=== PATIENT | female | born 1965 | race American Indian/Alaskan Native ===

== ENCOUNTER 2018-12-28 09:17 | Day surgery (SDC) | payer MEDICARE ==
[~2018-12-28 09:17] MED LIST: ceFAZolin/Water 2 GM/20 ML 2 GM/20 ML SYRINGE IV NR
--- NOTE | 2018-12-28 12:54 | Anesthesia Consultation ---
Anesthesia Consult and Med Hx Date of service: 12/28/18 - Airway Anesthetic Teeth Evaluation: Good ROM Head & Neck: Adequate Mental/Hyoid Distance: Adequate Mallampati Class: Class II Intubation Access Assessment: Good - Pulmonary Exam CTA: Yes - Cardiac Exam Cardiac Exam: RRR - Pre-Operative Health Status ASA Pre-Surgery Classification: ASA3 Proposed Anesthetic Plan: General - Cardiovascular System Hx Hypertension: Yes (x 17 yrs) - Central Nervous System Hx Psychiatric Problems: No - Endocrine Hx Renal Disease: Yes Hx End Stage Renal Disease: Yes - Other Systems Hx Cancer: No
--- NOTE | 2018-12-28 12:54 | Anesthesia Day of Surgery ---
Anesthesia Day of Surgery - Day of Surgery Patient Examined: Yes Patient H&P Reviewed: Yes Patient is NPO: Yes
[2018-12-28] MEDS ORDERED: ONDANSETRON 4 MG/2 ML INJ IV PRN (12:55)
[2018-12-28] MEDS ORDERED: HYDROmorphone 1 MG/1 ML INJ IV PRN (12:55)
[2018-12-28] MEDS ORDERED: MIDAZOLAM 2 MG/2 ML INJ IV NR (13:00)
[2018-12-28] MEDS ORDERED: LACTATED RINGERS 1,000 ML IV SCH (13:00)
[2018-12-28 14:36] LABS: Basophils # (Auto) 0.1 K/mm3 (0.0-0.1); Basophils % (Auto) 1.7 % (0.0-1.8); Eosinophils # (Auto) 0.1 K/mm3 (0.0-0.4); Eosinophils % (Auto) 2.9 % (0.0-4.3); Hemoglobin 13.1 gm/dl (10.1-14.3); Lymphocytes # (Auto) 1.6 K/mm3 (1.2-5.4); Lymphocytes % (Auto) 40.4 % (13.4-35.0); Mean Corpuscular HGB Conc 33 % (30-34); Mean Corpuscular Volume 93 fl (79-97); Monocytes # (Auto) 0.4 K/mm3 (0.0-0.8); Monocytes % (Auto) 9.1 % (0.0-7.3); Platelet Count 150 K/mm3 (140-440); Red Blood Count 4.33 M/mm3 (3.65-5.03)
[2018-12-28 14:52] LABS: Calcium 8.9 mg/dL (8.4-10.2)
[2018-12-28] MEDS ORDERED: SODIUM CHLORIDE 0.9% 1000 ML 1,000 ML IV SCH (15:10)
[2018-12-28] MEDS ORDERED: SODIUM CHLORIDE 0.9% 1000 ML 1,000 ML ONE (15:16)
[2018-12-28] MEDS ORDERED: LIDOCAINE (1%) 10 MG/1 ML VIAL 20 ML MDV ONE (18:29)
[2018-12-28] MEDS ORDERED: SODIUM CHLORIDE P/F VIAL 10 ML 10 ML ONE (18:29)
[2018-12-28] MEDS ORDERED: HEPARIN 10,000 UNITS/10 ML VIAL ONE (18:29)
[2018-12-28] MEDS ORDERED: BUPIVACAINE/PF (0.5%) 5 MG/1 ML 30 ML VIAL INFILTRATI ONE ×2 (18:29→21:11)
[2018-12-28] MEDS ORDERED: NITROGLYCERIN SYRINGE 0 ML ONE (18:30)
[2018-12-28] MEDS ORDERED: SODIUM CHLORIDE 0.9% 500 ML 500 ML ONE (18:30)
[2018-12-28] MEDS ORDERED: rifAMPin 600 MG VIAL ONE (18:30)
[2018-12-28] MEDS ORDERED: SODIUM CHLORIDE 0.9% 100 ML ONE (19:29)
[2018-12-28] MEDS ORDERED: SODIUM CHLORIDE 0.9% 50 ML ONE (19:29)
[2018-12-28] MEDS ORDERED: HYDROmorphone 1 MG/1 ML INJ ONE (20:34)
[2018-12-28] MEDS ORDERED: LIDOCAINE MPF (2%) 20 MG/1 ML VIAL 5 ML ONE (20:34)
[2018-12-28] MEDS ORDERED: PROPOFOL 200 MG/20 ML VIAL IV ONE (20:34)
[2018-12-28] MEDS ORDERED: SODIUM CHLORIDE 0.9% IRR 1,000 ML BOTTLE IR ONE (21:11)
[2018-12-28] MEDS ORDERED: HEPARIN 2,000 UNIT in SODIUM CHLORIDE 0.9% 500 ML 500 ML IR ONE (21:11)
[2018-12-28] MEDS ORDERED: PHENYLEPHRINE/NS 1,000 MCG/10 ML SYRINGE (OR USE) IV ONE (21:54)
[2018-12-28] MEDS ORDERED: RIFAMPIN IR ONE (22:15)
[2018-12-28] MEDS ORDERED: SODIUM CHLORIDE 0.9% IR ONE (22:15)
[2018-12-28] MEDS ORDERED: HEPARIN 10,000 UNITS/10 ML VIAL IV ONE (22:18)
[2018-12-28] MEDS ORDERED: ONDANSETRON 4 MG/2 ML INJ ONE (23:11)
--- NOTE | 2018-12-28 23:20 | Operative Report ---
Operative Report Operative Report: Date of procedure: 12/28/2018 Pre-operative diagnosis: [] Post-operative diagnosis: [] Procedure(s): 1. Creation of Left Brachial Artery to Axillary Vein AV Graft with 8 mm Bovine Graft Surgeon: Simon Zafar MD Life Skills Coordinator: None Anesthesia: General Endotracheal Anesthesia EBL: Minimal Counts: Correct Complications: None Condition: Stable Findings: Successful Creation of Left Arm AV Graft Specimen: None Indication: [] Description of Procedure: The patient was brought to the operating room and laid in supine position after general endotracheal anesthesia was achieved the left arm was prepped and draped in normal sterile fashion. A longitudinal incision was made on the medial aspect of the arm just proximal to the antecubital crease and carried down to the brachial artery using sharp dissection. The brachial artery was dissected out circumferentially both proximally and distally and controlled with vessel loops. A second incision was created in longitudinal fashion on the medial aspect of the arm just distal to the axillary crease and carried down to the axillary vein using sharp dissection. Axillary vein was dissected out circumferentially and controlled with a vessel loop. I then used a Catrachita-Wick tunneler to tunnel from the brachial artery incision to the axillary vein incision and then put an 8 mm bovine through the tunnel. I infused with heparinized saline to ensure that it was not twisted or kinked. I put the brachial artery vessel loops on tension controlling the flow and then created an arteriotomy using an 11 blade and Solorzano scissors. I beveled the graft and created an end-to-side anastomosis using 6-0 Prolene running fashion. I clamped the graft just proximal to the anastomosis and then released the vessel loops restoring flow in the brachial artery. I placed quick clot in incision to achieve hemostasis. I cut the proximal end of the graft to the appropriate length and beveled the graft in preparation for a venous anastomosis. I controlled the axillary vein a Satinsky clamp and created a venotomy using an 11 blade and Solorzano scissors. I created an end to side anastomosis using a 6-0 Prolene in running fashion. Prior to completing the anastomosis I flushed the graft to ensure there was no thrombus and then completed the anastamosis. I released all clamps allowing flow into the AV graft which had an excellent thrill. I packed the wound with quick clot to achieve hemostasis. I anesthetized both wounds with Marcaine and then closed both wounds in 2 layers using 3-0 Vicryl in running fashion in the deep dermal layer and 4-0 Monocryl in running fashion the subcuticular layer. I dressed both wounds with Surgicel. The patient tolerated the procedure well all sponge needle and instrument counts were correct the patient was taken to recovery in stable condition.
--- NOTE | 2018-12-28 23:20 | Short Stay Summary ---
Short Stay Documentation Date of service: 12/28/18 Narrative H&P: See H&P - History H&P: obtained from office - Allergies and Medications Current Medications: Allergies No Known Allergies Allergy (Unverified 12/24/18 15:47) Home Medications Medication Instructions Recorded Confirmed Last Taken Type Lisinopril [Zestril TAB] 10 mg PO DAILY 12/24/18 12/24/18 12/27/18 19:00 History Active Medications Hydromorphone HCl (Dilaudid) 0.25 mg IV Q10MIN PRN PRN Reason: Pain, Moderate (4-6) Stop: 12/28/18 23:59 Cefazolin Sodium (Ancef/Sterile Water 2 Gm/20 Ml) 2 gm in 20 mls @ 80 mls/hr IV PREOP NR; Protocol Stop: 12/28/18 23:59 Lactated Ringer's (Lactated Ringers) 1,000 mls @ 42 mls/hr IV DIRECT ELIEL Sodium Chloride (Nacl 0.9% 1000 Ml) 1,000 mls @ 42 mls/hr IV DIRECT ELIEL Last Admin: 12/28/18 20:40 Dose: 42 mls/hr Documented by: Midazolam HCl (Versed) 2 mg IV PREOP NR Stop: 12/28/18 23:59 Last Admin: 12/28/18 20:40 Dose: 2 mg Documented by: Ondansetron HCl (Zofran) 4 mg IV ONCE PRN PRN Reason: Nausea And Vomiting Stop: 12/28/18 23:59 - Brief post op/procedure progress note Date of procedure: 12/28/18 Pre-op diagnosis: End-Stage Renal Disease Post-op diagnosis: same Procedure: Creation of Left Brachial Artery to Axillary Vein Arteriovenous Graft with 6 Mm Bovine Artegraft Anesthesia: local, other (LMA) Surgeon: LUIZA MCGOWAN Estimated blood loss: minimal Pathology: none Condition: stable - Disposition Condition at discharge: Good Disposition: DC-01 TO HOME OR SELFCARE Short Stay Discharge Plan Activity: other (no heavy lifting with left arm) Wound: open to air, keep clean and dry, other (okay to wash the wound with soap and water but do not soak in water) Follow up with: LUIZA MCGOWAN MD [Staff Physician] - 14 Days Prescriptions: HYDROcodone/APAP 7.5-325 [[place] 7.5/325] 1 each PO Q6HR PRN #40 tablet PRN Reason: Pain
[2018-12-29 01:15] VITALS: BP 102/62
--- NOTE | 2018-12-29 15:12 | Post Anesthesia Evaluation ---
- Post Anesthesia Evaluation Patient Participated: Yes Airway Patent: Yes Stable Respiratory Function: Yes Nausea/Vomiting: No Temp > 96.8F: Yes Pain Manageable: Yes Adequeate Hydration: Yes Anesthesia Complications: No Block Receding Appropriately: Not Applicable Patient on Ventilator: No
== END 2018-12-28 09:18 | disposition home or self-care (01) ==
LOC: OR 09:17
PROVIDERS: ATTEND Surgery Vascular Surgery
DX: I12.0 Hypertensive chronic kidney disease with stage 5 chronic kidney disease or end stage renal disease (principal); N18.6 End stage renal disease; M19.90 Unspecified osteoarthritis, unspecified site; Z79.899 Other long term (current) drug therapy; Z98.891 History of uterine scar from previous surgery; Z99.2 Dependence on renal dialysis
CPT/HCPCS: 36415; 36830; 80048; 85025; C1757; C1768; J0690; J1170; J1644; J2250; J2370; J2405; J2704; J3490; J7030; J7040